=== PATIENT | male | born 1965 | race American Indian/Alaskan Native ===

== ENCOUNTER 2019-01-25 15:59 | Emergency (ER) | payer OTHER ==
[2019-01-25 16:31] VITALS: BP 137/87
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
[2019-01-25] MEDS ORDERED: IBUPROFEN PO ONE (17:42)
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
== END 2019-01-25 18:31 | disposition home or self-care (01) ==
LOC: ED 15:59
DX: S39.012A Strain of muscle, fascia and tendon of lower back, initial encounter (principal); V49.49XA Driver injured in collision with other motor vehicles in traffic accident, initial encounter; Y93.89 Activity, other specified; Y92.89 Other specified places as the place of occurrence of the external cause; Y99.8 Other external cause status
CPT/HCPCS: 72100